=== PATIENT | female | born 1975 | race Caucasian/White ===

== ENCOUNTER 2017-04-03 22:12 | Emergency (ER) | payer BC, MEDICAID, OTHER ==
[2017-04-03 22:17] VITALS: BP 110/65; PULSE 63; RESP 18; TEMP 97.6
--- NOTE | 2017-04-03 23:39 | ED ---
General Adult HPI - General Chief complaint: Needlestick/Exposure Stated complaint: [facility]. Needle Stick Time Seen by Provider: 04/03/17 23:12 Source: patient, RN notes reviewed Mode of arrival: ambulatory Limitations: no limitations - History of Present Illness Initial comments: Patient is a 41-year-old female who presents emergency room today with a chief complaint of a needlestick that occurred earlier tonight. She does admit that she was started on IV outpatient. She states she inserted the catheter removed the needle and it did not retract and she accidentally caught her left thumb. She states she felt "foot did not see any blood. She states she did clean the area. She denies any other complaints or symptoms. States her hepatitis B is up-to-date. Patient denies any recent fever, chills, shortness of breath, chest pain, back pain, abdominal pain, nausea or vomiting, numbness or tingling, dysuria or hematuria, constipation or diarrhea, headaches or visual changes, or any other complaints. - Related Data Home Medications Medication Instructions Recorded Confirmed ARIPiprazole [Abilify] 5 mg PO DAILY 04/03/17 04/03/17 Venlafaxine HCl [Effexor] 150 mg PO DAILY 04/03/17 04/03/17 buPROPion HCL [Wellbutrin XL] 300 mg PO DAILY 04/03/17 04/03/17 Allergies Allergy/AdvReac Type Severity Reaction Status Date / Time sulfamethoxazole Allergy Itching Verified 04/03/17 22:17 [From Bactrim] trimethoprim [From Bactrim] Allergy Itching Verified 04/03/17 22:17 Review of Systems ROS Statement: Those systems with pertinent positive or pertinent negative responses have been documented in the HPI. ROS Other: All systems not noted in ROS Statement are negative. Past Medical History Additional Past Medical History / Comment(s): Genital Herpes (pt takes valtrex) History of Any Multi-Drug Resistant Organisms: None Reported Past Surgical History: No Surgical Hx Reported Past Anesthesia/Blood Transfusion Reactions: No Reported Reaction Past Psychological History: No Psychological Hx Reported Smoking Status: Never smoker Past Alcohol Use History: Occasional Past Drug Use History: None Reported - Past Family History Mother Additional Family Medical History / Comment(s): Alzheimers General Exam - General Exam Comments Initial Comments: General: The patient is awake and alert, in no distress, and does not appear acutely ill. Eye: Pupils are equal, round and reactive to light, extra-ocular movements are intact. No nystagmus. There is normal conjunctiva bilaterally. No signs of icterus. Ears, nose, mouth and throat: There are moist mucous membranes and no oral lesions. Neck: The neck is supple, there is no tenderness or JVD. Musculoskeletal: Normal ROM, no tenderness. Strength 5/5. Sensation intact. Pulses equal bilaterally 2+. Neurological: A&O x 3. CN II-XII intact, There are no obvious motor or sensory deficits. Coordination appears grossly intact. Speech is normal. Skin: Skin is warm and dry and no rashes or lesions are noted. no sign of puncture wound. Psychiatric: Cooperative, appropriate mood & affect, normal judgment. Limitations: no limitations Course Vital Signs 04/03/17 22:15 Temperature 97.6 F Pulse Rate 63 Respiratory 18 Rate Blood Pressure 110/65 O2 Sat by Pulse 96 Oximetry Medical Decision Making - Medical Decision Making patient's source HIV test was negative. Patient will be discharged advised follow-up with [employer] [facility] for further testing. Disposition Clinical Impression: Needle stick injury Disposition: HOME SELF-CARE Condition: Good Instructions: Needle Stick Injuries (ED) Additional Instructions: Please follow-up with employee health as directed. Time of Disposition: 00:17
== END 2017-04-04 00:20 | disposition home or self-care (01) ==
LOC: EC 22:12
DX: S69.90XA Unspecified injury of unspecified wrist, hand and finger(s), initial encounter (principal); Z79.899 Other long term (current) drug therapy; Z88.2 Allergy status to sulfonamides; W46.0XXA Contact with hypodermic needle, initial encounter; Y99.0 Civilian activity done for income or pay
CPT/HCPCS: 99282

== ENCOUNTER → 2017-05-20 | Outpatient (CLI) | payer BC ==
--- NOTE | 2017-05-21 09:20 | MM ---
Reason for exam: screening (asymptomatic). Last mammogram was performed 7 years and 7 months ago. History: Patient is nulliparous. Family history of breast cancer in grandmother at age 70 and breast cancer in cousin. Physical Findings: A clinical breast exam by your physician is recommended on an annual basis and results should be correlated with mammographic findings. MG Screening Mammo w CAD Bilateral CC and MLO view(s) were taken. Prior study comparison: January 11, 2011, right breast ultrasound. The breast tissue is extremely dense which could obscure a lesion on mammography. There is no discrete abnormality. No significant changes when compared with prior studies. ASSESSMENT: Negative, BI-RAD 1 RECOMMENDATION: Routine screening mammogram of both breasts in 1 year.
== END | disposition home or self-care (01) ==
LOC: RADMAMWWP 13:45
PROVIDERS: ATTEND Obstetrics & Gynecology
DX: Z12.31 Encounter for screening mammogram for malignant neoplasm of breast (principal)

== ENCOUNTER 2017-12-13 15:30 | Emergency (ER) | payer BC, OTHER ==
[2017-12-13 15:56] VITALS: BP 122/57; PULSE 67; RESP 18; TEMP 97.3
--- NOTE | 2017-12-13 16:12 | ED ---
Skin/Abscess/FB HPI - General Chief complaint: Needlestick/Exposure Stated complaint: Needle Stick Time Seen by Provider: 12/13/17 15:58 Source: patient Mode of arrival: ambulatory Limitations: no limitations - History of Present Illness Initial comments: 42-year-old female patient presents to the emergency department today for evaluation after being stuck by a needle while at work. Patient states she was administering some medications or butterfly needle, when she pulled the needle out she actually dropped the syringe causing the needle to poke her in the left index finger. Patient states she did wash the area very well. She states she is up-to-date on her immunizations including hep B and tetanus. She states that she did interview the source who denied having any infectious diseases. Patient denies any other injuries or concerns. Patient denies any headache, neck pain, back pain, chest pain, shortness of breath, dizziness, weakness, abdominal pain, nausea, vomiting, or difficulties with bowel movements or urination. - Related Data Home Medications Medication Instructions Recorded Confirmed Venlafaxine HCl [Effexor] 150 mg PO DAILY 04/03/17 12/13/17 Allergies Allergy/AdvReac Type Severity Reaction Status Date / Time sulfamethoxazole Allergy Itching Verified 12/13/17 15:56 [From Bactrim] trimethoprim [From Bactrim] Allergy Itching Verified 12/13/17 15:56 Review of Systems ROS Statement: Those systems with pertinent positive or pertinent negative responses have been documented in the HPI. ROS Other: All systems not noted in ROS Statement are negative. Past Medical History Past Medical History: No Reported History Additional Past Medical History / Comment(s): Genital Herpes (pt takes valtrex) History of Any Multi-Drug Resistant Organisms: None Reported Past Surgical History: No Surgical Hx Reported Past Anesthesia/Blood Transfusion Reactions: No Reported Reaction Past Psychological History: Depression Smoking Status: Current every day smoker Past Alcohol Use History: Occasional Past Drug Use History: None Reported - Past Family History Mother Additional Family Medical History / Comment(s): Alzheimers General Exam Limitations: no limitations General appearance: alert, in no apparent distress, other (This is a well- developed, well-nourished adult female patient in no acute distress. Vital signs upon presentation are temperature 97.3F, pulse 67, respirations 18, blood pressure 122/57, pulse ox 96% on room air.) Eye exam: Present: normal appearance, PERRL, EOMI. Absent: scleral icterus, conjunctival injection, periorbital swelling ENT exam: Present: normal exam, normal oropharynx, mucous membranes moist Respiratory exam: Present: normal lung sounds bilaterally. Absent: respiratory distress, wheezes, rales, rhonchi, stridor Cardiovascular Exam: Present: regular rate, normal rhythm, normal heart sounds. Absent: systolic murmur, diastolic murmur, rubs, gallop, clicks Extremities exam: Present: full ROM, normal capillary refill, other (Puncture wound noted to the lateral aspect of the left index finger). Absent: tenderness , pedal edema, joint swelling, calf tenderness Neurological exam: Present: alert, oriented X3, CN II-XII intact Psychiatric exam: Present: normal affect, normal mood Skin exam: Present: warm, dry, intact, normal color. Absent: rash Course Vital Signs 12/13/17 15:53 Temperature 97.3 F L Pulse Rate 67 Respiratory 18 Rate Blood Pressure 122/57 O2 Sat by Pulse 96 Oximetry Medical Decision Making - Medical Decision Making This is a 42-year-old female patient presented to the emergency department today for evaluation of needle stick injury. Patient did wash the wound. If she has been vaccinated against hep B and tetanus. Source is available for trauma. We will draw her blood and let her know of the patient's HIV status. She is instructed to follow-up with employee health services for further evaluation and for other results. She is instructed to return here immediately for any new, worsening, or concerning symptoms. She verbalizes understanding and agrees with this plan. Note: Patient was notified at 1654 that the source was negative for HIV. Disposition Clinical Impression: Needlestick injury accident with exposure to body fluid Disposition: HOME SELF-CARE Condition: Good Instructions: Body Substance Exposure (ED) Additional Instructions: Keep area clean and dry. Contact employee health services for further information and evaluation. Return here immediately for any new, worsening, or concerning symptoms. Referrals: Trish Cortes MD [Primary Care Provider] - 1-2 days Time of Disposition: 16:12
== END 2017-12-13 16:29 | disposition home or self-care (01) ==
LOC: EC 15:30
DX: S61.231A Puncture wound without foreign body of left index finger without damage to nail, initial encounter (principal); F32.9 Major depressive disorder, single episode, unspecified; F17.200 Nicotine dependence, unspecified, uncomplicated; Z79.899 Other long term (current) drug therapy; Z88.2 Allergy status to sulfonamides; W46.1XXA Contact with contaminated hypodermic needle, initial encounter; Y93.89 Activity, other specified; Y92.238 Other place in hospital as the place of occurrence of the external cause; Y99.0 Civilian activity done for income or pay
CPT/HCPCS: 99282

== ENCOUNTER → 2018-08-06 | Outpatient (CLI) | payer BC ==
--- NOTE | 2018-08-10 11:32 | MM ---
Reason for exam: screening (asymptomatic). Last mammogram was performed 1 year and 3 months ago. History: Patient had first child at age 40. Family history of breast cancer in grandmother at age 70 and breast cancer in cousin. Physical Findings: A clinical breast exam by your physician is recommended on an annual basis and results should be correlated with mammographic findings. MG Screening Mammo w CAD Bilateral CC and MLO view(s) were taken. Prior study comparison: May 20, 2017, bilateral MG screening mammo w CAD. October 13, 2009, bilateral diagnostic digital mammog. The breast tissue is extremely dense which could obscure a lesion on mammography. No significant changes when compared with prior studies. ASSESSMENT: Benign, BI-RAD 2 RECOMMENDATION: Routine screening mammogram of both breasts in 1 year.
== END ==
LOC: RADMAMWWP 16:40
PROVIDERS: ATTEND Obstetrics & Gynecology
DX: Z12.31 Encounter for screening mammogram for malignant neoplasm of breast (principal)
CPT/HCPCS: 77067

== ENCOUNTER 2018-09-22 18:06 | Emergency (ER) | payer BC ==
[2018-09-22 18:11] VITALS: BP 130/81; PULSE 97; RESP 18; TEMP 98
--- NOTE | 2018-09-22 18:30 | ED ---
General Adult HPI - General Chief complaint: Upper Respiratory Infection Stated complaint: Flu, Cough, SOB Time Seen by Provider: 09/22/18 18:18 Source: patient, RN notes reviewed Mode of arrival: ambulatory Limitations: no limitations - History of Present Illness Initial comments: Patient is a 43-year-old female who presents to the emergency department with complaints of cough, muscle aches, fevers, and night sweats that started 10 days ago. Her cough has gone from dry to productive. She reports that she got the flu shot this year. She is worried she has pneumonia. Admits to runny nose, congestion, shortness of breath and pain in her left chest during coughing. Patient denies any recent eye pain or drainage, back pain, abdominal pain, nausea or vomiting, numbness or tingling, constipation or diarrhea, headaches or visual changes, or any other complaints. - Related Data Home Medications Medication Instructions Recorded Confirmed Venlafaxine HCl [Effexor] 150 mg PO DAILY 04/03/17 12/13/17 Previous Rx's Medication Instructions Recorded Azithromycin [Zithromax] 250 mg PO DAILY 4 Days #4 tab 09/22/18 Allergies Allergy/AdvReac Type Severity Reaction Status Date / Time sulfamethoxazole Allergy Itching Verified 09/22/18 18:11 [From Bactrim] trimethoprim [From Bactrim] Allergy Itching Verified 09/22/18 18:11 Review of Systems ROS Statement: Those systems with pertinent positive or pertinent negative responses have been documented in the HPI. ROS Other: All systems not noted in ROS Statement are negative. Past Medical History Past Medical History: No Reported History Additional Past Medical History / Comment(s): Genital Herpes (pt takes valtrex) History of Any Multi-Drug Resistant Organisms: None Reported Past Surgical History: No Surgical Hx Reported Past Anesthesia/Blood Transfusion Reactions: No Reported Reaction Past Psychological History: Depression Smoking Status: Never smoker Past Alcohol Use History: Occasional Past Drug Use History: None Reported - Past Family History Mother Additional Family Medical History / Comment(s): Alzheimers General Exam Limitations: no limitations General appearance: alert, in no apparent distress Head exam: Present: atraumatic, normocephalic Eye exam: Present: normal appearance, PERRL ENT exam: Present: normal exam, normal oropharynx, TM's normal bilaterally, normal external ear exam Neck exam: Present: normal inspection Respiratory exam: Present: normal lung sounds bilaterally Cardiovascular Exam: Present: regular rate, normal rhythm Extremities exam: Present: normal inspection Neurological exam: Present: alert, oriented X3, normal gait Psychiatric exam: Present: normal affect, normal mood Skin exam: Present: warm, dry Course Vital Signs 09/22/18 18:07 Temperature 98.0 F Pulse Rate 97 Respiratory 18 Rate Blood Pressure 130/81 O2 Sat by Pulse 99 Oximetry Medical Decision Making - Medical Decision Making Patient is a 43 year old female with productive cough, muscle aches, occasional fevers, night sweats and URI symptoms that started 10 days ago. Influenza A and B are negative. CXR revealed left lung base infiltrate that is likely lower lobe. She is afebrile here. Vital signs are WNL. Will give her Rocephin and azithromycin here. Will discharge with a prescription for azithromycin. Case discussed in detail with attending physician Dr. Disla. - Lab Data Lab Results 09/22/18 Range/Units 18:47 Influenza Type A RNA Not Detected (Not Detectd) Influenza Type B (PCR) Not Detected (Not Detectd) Disposition Clinical Impression: Pneumonia Disposition: HOME SELF-CARE Condition: Good Instructions: Pneumonia (ED) Additional Instructions: Follow-up with your PCP in 2 days. Return to emergency department if symptoms worsen or any other concerns. Prescriptions: Azithromycin [Zithromax] 250 mg PO DAILY 4 Days #4 tab Is patient prescribed a controlled substance at d/c from ED?: No Referrals: Trish Cortes MD [Primary Care Provider] - 1-2 days Time of Disposition: 20:20
--- NOTE | 2018-09-22 19:02 | XR ---
EXAMINATION TYPE: XR chest 2V DATE OF EXAM: 09/22/2018 COMPARISON: NONE HISTORY: Cough congestion and shortness of breath for 10 days. TECHNIQUE: Frontal and lateral views of the chest are obtained. FINDINGS: There is suspicious left basilar opacity. Right lung is clear. No pleural effusion or pneu mothorax is present bilaterally. The cardiac silhouette size is within normal limits. S-shaped scolio sis is seen. IMPRESSION: Suspicious acute infiltrate left lung base likely lower lobe based on lateral view.
[2018-09-22] MEDS ORDERED: cefTRIAXone 1,000 MG VIAL (IM USE) IM STA (19:53)
[2018-09-22] MEDS ORDERED: AZITHROMYCIN 500 MG TAB PO STA (19:55)
== END 2018-09-22 20:34 | disposition home or self-care (01) ==
LOC: EC 18:06
DX: J18.9 Pneumonia, unspecified organism (principal); F32.9 Major depressive disorder, single episode, unspecified; Z88.1 Allergy status to other antibiotic agents; Z88.2 Allergy status to sulfonamides; Z79.899 Other long term (current) drug therapy
CPT/HCPCS: 99285; 96372; 87502; 71046; J0696

== ENCOUNTER → 2018-10-13 | Outpatient (CLI) | payer BC ==
--- NOTE | 2018-10-13 23:00 | XR ---
EXAMINATION TYPE: XR hand complete RT DATE OF EXAM: 10/13/2018 COMPARISON: NONE HISTORY: 43-year-old female contusion right fifth MCP joint, pain TECHNIQUE: 3 views FINDINGS: Joint spaces are maintained. No acute fracture, subluxation, or dislocation. There may be some mild s oft tissue swelling at the fifth MCP joint. IMPRESSION: No acute osseous abnormality seen.
== END | disposition home or self-care (01) ==
LOC: RADXRMAIN 15:45
PROVIDERS: ATTEND Radiology Diagnostic Radiology
DX: M25.541 Pain in joints of right hand (principal)

== ENCOUNTER → 2019-03-16 | Outpatient (CLI) | payer BC ==
[2019-03-16 08:48] LABS: HCT 36.6 % (34.0-46.0); HGB 11.6 gm/dL (11.4-16.0); MCH 27.9 pg (25.0-35.0); MCHC 31.7 g/dL (31.0-37.0); MCV 88.1 fL (80.0-100.0); Mean Platelet Volume 7.7; Platelet Count 243 k/uL (150-450); RBC 4.15 m/uL (3.80-5.40); WBC 3.5 k/uL (3.8-10.6)
[2019-03-16 09:05] LABS: ALT 20 U/L (9-52); AST 30 U/L (14-36); Albumin 4.5 g/dL (3.5-5.0); Alkaline Phosphatase 45 U/L (38-126); Anion Gap 5 mmol/L; Blood Urea Nitrogen 13 mg/dL (7-17); Carbon Dioxide 28 mmol/L (22-30); Chloride 108 mmol/L (98-107); Cholesterol 188 mg/dL (<200); Glucose 87 mg/dL (74-99); HDL Cholesterol 48 mg/dL (40-60); LDL Cholesterol,Calculated 123 mg/dL (0-99); Potassium 5.4 mmol/L (3.5-5.1); Sodium 141 mmol/L (137-145); Total Bilirubin 0.9 mg/dL (0.2-1.3); Total Protein 7.4 g/dL (6.3-8.2); Triglycerides 86 mg/dL (<150)
[2019-03-16 09:23] LABS: T4, Free (Free Thyroxine) 0.75 ng/dL (0.78-2.19)
== END | disposition home or self-care (01) ==
LOC: RADXRMAIN 08:21
PROVIDERS: ATTEND Family Medicine
DX: Z00.00 Encounter for general adult medical examination without abnormal findings (principal)
CPT/HCPCS: 80053; 80061; 84439; 84443; 85027

== ENCOUNTER → 2020-10-02 | Outpatient (CLI) | payer BC | END | disposition home or self-care (01) | LOC: LABWHC1 13:10 | PROVIDERS: ATTEND Pediatrics Pediatric Infectious Diseases | DX: Z20.828 Contact with and (suspected) exposure to other viral communicable diseases (principal) | CPT/HCPCS: 87635; C9803 ==

== ENCOUNTER → 2020-10-03 | Outpatient (CLI) | payer BC | END | disposition home or self-care (01) | LOC: LABWHC1 11:43 | PROVIDERS: ATTEND Pediatrics Pediatric Infectious Diseases | DX: Z20.828 Contact with and (suspected) exposure to other viral communicable diseases (principal) | CPT/HCPCS: 87635; C9803 ==

== ENCOUNTER → 2021-10-08 | Outpatient (CLI) | payer BC, OTHER | END | disposition home or self-care (01) | LOC: LABMAIN 19:23 | PROVIDERS: ATTEND Emergency Medicine | DX: Z03.818 Encounter for observation for suspected exposure to other biological agents ruled out (principal) | CPT/HCPCS: 87635 ==

== ENCOUNTER → 2021-10-09 | Outpatient (CLI) | payer BC, OTHER | END | disposition home or self-care (01) | LOC: LABMAIN 19:28 | PROVIDERS: ATTEND Emergency Medicine | DX: Z03.818 Encounter for observation for suspected exposure to other biological agents ruled out (principal) | CPT/HCPCS: 87635 ==

== ENCOUNTER → 2021-11-26 | Outpatient (CLI) | payer MEDICAID, BC, OTHER | END | disposition home or self-care (01) | LOC: LABWHC1 16:42 | PROVIDERS: ATTEND Emergency Medicine | DX: U07.1 COVID-19 (principal) | CPT/HCPCS: 87635 ==

== ENCOUNTER → 2022-04-30 | Outpatient (CLI) | payer MEDICAID ==
--- NOTE | 2022-05-01 09:50 | MM ---
Reason for Exam: Screening (asymptomatic). Last mammogram was performed 3 year(s) and 9 month(s) ago. Patient History: Menarche at age 16. First Full-Term at age 40. Late child-bearing (after 30). Maternal grandmother had breast cancer, age 70. Maternal cousin had breast cancer. Last menstrual period: 04/24/2022 Risk Values: Amanda 5 year model risk: 1.0%. NCI Lifetime model risk: 11.9%. Prior Study Comparison: 10/13/2009 Bilateral Diagnostic Mammogram, [facility]. 05/20/2017 Bilateral Screening Mammogram, [facility]. 08/06/2018 Bilateral Screening Mammogram, [facility]. Tissue Density: The breast tissue is extremely dense which could obscure a lesion on mammography. Findings: Analyzed By CAD. There is no suspicious group of microcalcifications or new suspicious mass in either breast. Overall Assessment: Negative, BI-RAD 1 Management: Screening Mammogram of both breasts in 1 year. A clinical breast exam by your physician is recommended on an annual basis and results should be correlated with mammographic findings. Electronically signed and approved by: Howard Floyd M.D. Radiologis
== END | disposition home or self-care (01) ==
LOC: RADMAMWWP 10:06
PROVIDERS: ATTEND Obstetrics & Gynecology
DX: Z12.31 Encounter for screening mammogram for malignant neoplasm of breast (principal); Z80.3 Family history of malignant neoplasm of breast
CPT/HCPCS: 77063; 77067

== ENCOUNTER → 2025-02-14 | Outpatient (CLI) | payer MEDICAID ==
--- NOTE | 2025-02-14 15:11 | MM ---
Reason for Exam: Screening (asymptomatic). Last mammogram was performed 2 year(s) and 9 month(s) ago. Patient History: Menarche at age 16. First Full-Term at age 40. Late child-bearing (after 30). Maternal grandmother had breast cancer, age 70. Maternal cousin had breast cancer. Risk Values: Amanda 5 year model risk: 1.1%. NCI Lifetime model risk: 11.4%. Prior Study Comparison: 05/20/2017 Bilateral Screening Mammogram, [facility]. 08/06/2018 Bilateral Screening Mammogram, [facility]. 04/30/2022 Bilateral MG 3D screening mammo w/cad, [facility]. Tissue Density: The breasts are extremely dense, which lowers the sensitivity of mammography. Findings: Analyzed By CAD. There is no suspicious group of microcalcifications or new suspicious mass in either breast. Overall Assessment: Benign, BI-RAD 2 Management: Screening Mammogram of both breasts in 1 year. . Patient should continue monthly self-breast exams. A clinical breast exam by your physician is recommended on an annual basis. This exam should not preclude additional follow-up of suspicious palpable abnormalities. Note on Amanda scores and lifetime risk: 1. A Amanda score greater than 3% is considered moderate risk. If this is the case, consider specialist referral to assess eligibility for a risk reducing agent. 2. If overall lifetime risk for the development of breast cancer is 20% or higher, the patient may qualify for future screening with alternating mammogram and breast MRI. [facility], , 02/14/2025 3:09 PM. Electronically signed and approved by: Elias Dove M.D. Radiologis
== END | disposition home or self-care (01) ==
LOC: RADMAMWWP 14:31
PROVIDERS: ATTEND Family Medicine
DX: Z12.31 Encounter for screening mammogram for malignant neoplasm of breast (principal); R92.343 Mammographic extreme density, bilateral breasts; Z80.3 Family history of malignant neoplasm of breast
CPT/HCPCS: 77063; 77067

== ENCOUNTER → 2025-06-01 | Outpatient (CLI) | payer MEDICAID | END | disposition home or self-care (01) | LOC: LABWHC1 14:36 | PROVIDERS: ATTEND Obstetrics & Gynecology | DX: N91.2 Amenorrhea, unspecified (principal); N95.1 Menopausal and female climacteric states; G47.00 Insomnia, unspecified; R61 Generalized hyperhidrosis; R53.83 Other fatigue | CPT/HCPCS: 36415; 83001; 84144 ==

== ENCOUNTER → 2025-06-10 | Outpatient (CLI) | payer MEDICAID | END | disposition home or self-care (01) | LOC: LABWHC1 14:42 | PROVIDERS: ATTEND Physician Assistant | DX: N95.1 Menopausal and female climacteric states (principal); G47.9 Sleep disorder, unspecified; N91.2 Amenorrhea, unspecified; R61 Generalized hyperhidrosis; R53.83 Other fatigue | CPT/HCPCS: 36415; 82670; 84403 ==